=== PATIENT | female | born 1985 ===

== ENCOUNTER 2021-09-05 02:56 | Inpatient (IN) | payer MEDICAID, OTHER ==
[~2021-09-05] VITALS: Ht 162.6 cm; Wt 72.4 kg
[2021-09-05] MEDS ORDERED: DiphenhydrAMINE HCL 50 MG/ML VIAL IM ONE ×2 (03:15→17:00)
[2021-09-05] MEDS ORDERED: LORazepam 2 MG/ML VIAL IM ONE ×2 (03:15→17:00)
[2021-09-05] MEDS ORDERED: SODIUM CHLORIDE 0.9% 250 ML IRRIG SOLUTION BOTTLE IRRIG ONE (03:15)
[2021-09-05] MEDS ORDERED: HALOPERIDOL LACTATE 5 MG/ML VIAL IM ONE ×2 (03:15→17:00)
[2021-09-05 05:14] LABS: COVID AG,FIA SOURCE NASAL SWAB
[2021-09-05 05:26] LABS: BASOPHILS % (AUTO) 0.5 % (0.0-2.0); EOSINOPHILS % (AUTO) 0.9 % (1.0-6.0); HEMATOCRIT 30.7 % (36-46); HEMOGLOBIN 10.1 g/dL (12.0-16.0); LYMPHOCYTES # (AUTO) 1.5 K/uL (1.0-4.8); LYMPHOCYTES % (AUTO) 14.2 % (22.0-44.0); MEAN CORPUSCULAR HEMOGLOBIN 26.3 pg (26.0-34.0); MEAN CORPUSCULAR HGB CONC 32.9 G/dL (31.0-37.0); MEAN CORPUSCULAR VOLUME 80 fL (80-100); MONOCYTES # (AUTO) 0.7 K/uL (0.1-1.0); MONOCYTES % (AUTO) 6.5 % (2.0-9.0); NEUTROPHILS # (AUTO) 8.2 K/uL (1.8-7.7); NEUTROPHILS % (AUTO) 77.9 % (40.0-70.0); PLATELET COUNT (AUTO) 412 K/uL (150-450); RED BLOOD CELL COUNT(AUTO) 3.84 MIL/uL (4.00-5.20); RED CELL DISTRIBUTION WIDTH 17.6 % (11.5-14.5)
[2021-09-05 05:36] LABS: ANION GAP 8 mmol/L (8-16); CARBON DIOXIDE 27 mmol/L (22-29); CHLORIDE 103 mmol/L (98-107); CREATININE 0.63 mg/dL (0.60-1.30); GLOMERULAR FILTR. RATE CALC > 60 mL/min (>60); GLUCOSE,RANDOM 94 mg/dL (70-110); POTASSIUM 3.9 mmol/L (3.5-5.1); SODIUM SERUM 138 mmol/L (136-145); UREA NITROGEN, BLOOD 31 mg/dL (7-18)
[2021-09-05 05:56] LABS: ALANINE AMINOTRANSFERASE 22 U/L (12-78); ALBUMIN 3.7 g/dL (3.4-5.0); ALKALINE PHOSPHATASE 62 U/L (46-116); ASPARTATE AMINOTRANSFERASE 22 U/L (15-37); BILIRUBIN,TOTAL 0.3 mg/dL (0.1-1.0); HCG,QUANTITATIVE 1 mIU/mL (0-6); THYROID STIMULATING HORMONE 2.48 uIU/mL (0.36-3.74); TOTAL PROTEIN, SERUM 7.8 g/dL (6.4-8.2)
[2021-09-05 19:13] LABS: AMPHET/METH SCREEN,URINE POSITIVE (NEGATIVE); BARBITURATE SCREEN, URINE NEGATIVE (NEGATIVE); BENZODIAZEPINES SCREEN,URINE NEGATIVE (NEGATIVE); CANNABINOID SCREEN,URINE NEGATIVE (NEGATIVE); COCAINE SCREEN,URINE NEGATIVE (NEGATIVE); METHADONE SCREEN, URINE NEGATIVE (NEGATIVE); OPIATE SCREEN,URINE NEGATIVE (NEGATIVE)
[2021-09-05 19:15] LABS: PHENCYCLIDINE SCREEN,URINE NEGATIVE (NEGATIVE)
[2021-09-05 21:09] VITALS: BP 137/99
[2021-09-06 08:00] VITALS: BP 126/96
[2021-09-06] MEDS ORDERED: CloNIDine HCL 0.1 MG TABLET PO PRN (15:30)
[2021-09-06] MEDS ORDERED: ACETAMINOPHEN 325 MG TABLET PO PRN (15:30)
[2021-09-06] MEDS ORDERED: ONDANSETRON HCL 4 MG TABLET PO PRN (15:30)
[2021-09-06] MEDS ORDERED: DOCUSATE SODIUM 100 MG CAPSULE PO PRN (15:30)
[2021-09-06] MEDS ORDERED: LOPERAMIDE HCL 2 MG CAPSULE PO PRN (15:30)
[2021-09-06] MEDS ORDERED: GuaiFENesin/D-METHORPHAN [SUGAR-FREE] 200-20MG/10 ML SYRUP UDCUP PO PRN (15:30)
[2021-09-06] MEDS ORDERED: MAGNESIUM HYDROXIDE SUSPENSION 30 ML UDCUP PO PRN (15:30)
[2021-09-06] MEDS ORDERED: PETROLATUM,WHITE 28 GM JELLY TP PRN (15:30)
[2021-09-06] MEDS ORDERED: IBUPROFEN 400 MG TABLET PO PRN (15:30)
[2021-09-06] MEDS ORDERED: MAG HYDROX/AL HYDROX/SIMETH ES 30 ML SUSPENSION UDCUP PO PRN (15:30)
[2021-09-06] MEDS ORDERED: ALBUTEROL SULFATE HFA 90 MCG/PUFF 8 GM INHALER IH PRN (15:30)
[2021-09-06] MEDS: HALOPERIDOL 5 MG TABLET PO PRN (15:56)
[2021-09-06] MEDS: LORazepam 2 MG TABLET PO PRN (15:57)
[2021-09-06 16:11] VITALS: BP 117/77
[2021-09-06] MEDS: OLANZapine 5 MG TABLET PO SCH (20:41)
[2021-09-07 09:20] VITALS: BP 134/79
[2021-09-07] MEDS: OLANZapine 5 MG TABLET PO SCH ×2 (09:58→20:33)
[2021-09-07 16:36] VITALS: BP 131/98
[2021-09-08 08:24] VITALS: BP 151/90
[2021-09-08] MEDS: OLANZapine 5 MG TABLET PO SCH ×2 (08:51→20:33)
[2021-09-08] MEDS: LORazepam 2 MG TABLET PO PRN ×2 (08:51→16:03)
[2021-09-08 16:13] VITALS: BP 150/79
[2021-09-09 08:09] VITALS: BP 133/90
[2021-09-09] MEDS: OLANZapine 5 MG TABLET PO SCH ×2 (08:17→21:14)
[2021-09-09] MEDS: LORazepam 2 MG TABLET PO PRN ×3 (08:18→19:00)
[2021-09-09] MEDS: HALOPERIDOL 5 MG TABLET PO PRN ×2 (13:15→19:00)
[2021-09-09 16:32] VITALS: BP 143/84
[2021-09-09] MEDS: ZOLPIDEM TARTRATE 10 MG TABLET PO PRN (21:15)
[2021-09-10] MEDS: HALOPERIDOL 5 MG TABLET PO PRN (07:30)
[2021-09-10] MEDS: OLANZapine 5 MG TABLET PO SCH ×2 (07:30→20:13)
[2021-09-10] MEDS: LORazepam 2 MG TABLET PO PRN (07:30)
[2021-09-10] MEDS: NICOTINE 14 MG/24 HOUR PATCH TD PRN (07:33)
[2021-09-10 08:38] VITALS: BP 117/61
[2021-09-10 08:41] VITALS: BP 117/61
[2021-09-10 16:03] VITALS: BP 123/77
[2021-09-11] MEDS: HALOPERIDOL 5 MG TABLET PO PRN ×2 (08:33→17:41)
[2021-09-11] MEDS: OLANZapine 5 MG TABLET PO SCH ×2 (08:33→20:12)
[2021-09-11] MEDS: LORazepam 2 MG TABLET PO PRN (08:33)
[2021-09-11 08:45] VITALS: BP 139/89
[2021-09-11 16:21] VITALS: BP 130/72
[2021-09-12] MEDS: OLANZapine 5 MG TABLET PO SCH ×2 (07:48→20:15)
[2021-09-12] MEDS: LORazepam 2 MG TABLET PO PRN (07:48)
[2021-09-12 09:57] VITALS: BP 154/77
[2021-09-12 16:10] VITALS: BP 148/76
[2021-09-13 08:09] VITALS: BP 151/104
[2021-09-13] MEDS: OLANZapine 5 MG TABLET PO SCH ×2 (09:09→20:02)
[2021-09-13] MEDS: LORazepam 2 MG TABLET PO PRN ×2 (09:09→16:14)
[2021-09-13 12:54] LABS: COVID AG,FIA SOURCE NASOPHARYNGEAL
[2021-09-13 18:47] VITALS: BP 132/95
[2021-09-13] MEDS: ZOLPIDEM TARTRATE 10 MG TABLET PO PRN (20:03)
[2021-09-14 08:10] VITALS: BP 151/96
[2021-09-14] MEDS: OLANZapine 5 MG TABLET PO SCH ×2 (09:39→20:13)
[2021-09-14] MEDS: LORazepam 2 MG TABLET PO PRN (16:20)
[2021-09-14] MEDS: ZOLPIDEM TARTRATE 10 MG TABLET PO PRN (20:13)
[2021-09-15 08:45] VITALS: BP 134/92
[2021-09-15] MEDS: OLANZapine 5 MG TABLET PO SCH ×2 (09:49→20:11)
[2021-09-15] MEDS: LORazepam 2 MG TABLET PO PRN (16:00)
[2021-09-15] MEDS: HALOPERIDOL 5 MG TABLET PO PRN (16:00)
[2021-09-15 16:38] VITALS: BP 135/76
[2021-09-15] MEDS: ZOLPIDEM TARTRATE 10 MG TABLET PO PRN (20:11)
[2021-09-16 08:28] VITALS: BP 142/85
[2021-09-16] MEDS: OLANZapine 5 MG TABLET PO SCH ×2 (08:35→20:03)
[2021-09-16 16:12] VITALS: BP 135/84
[2021-09-16] MEDS: ZOLPIDEM TARTRATE 10 MG TABLET PO PRN (21:02)
[2021-09-17 08:00] VITALS: BP 143/86
[2021-09-17] MEDS: OLANZapine 5 MG TABLET PO SCH ×2 (08:08→20:23)
[2021-09-17 16:16] VITALS: BP 158/85
[2021-09-17] MEDS: HALOPERIDOL 5 MG TABLET PO PRN (16:26)
[2021-09-17] MEDS: LORazepam 2 MG TABLET PO PRN (16:27)
[2021-09-18] MEDS: OLANZapine 5 MG TABLET PO SCH ×2 (08:26→20:04)
[2021-09-18 11:25] VITALS: BP 128/85
[2021-09-18] MEDS: LORazepam 2 MG TABLET PO PRN (16:06)
[2021-09-18] MEDS: HALOPERIDOL 5 MG TABLET PO PRN (16:06)
[2021-09-18 16:21] VITALS: BP 126/78
[2021-09-19 08:00] VITALS: BP 148/78
[2021-09-19] MEDS: OLANZapine 5 MG TABLET PO SCH ×2 (08:13→20:06)
[2021-09-19 16:13] VITALS: BP 140/87
[2021-09-19] MEDS: HALOPERIDOL 5 MG TABLET PO PRN (16:24)
[2021-09-19] MEDS: LORazepam 2 MG TABLET PO PRN (16:24)
[2021-09-20 08:00] VITALS: BP 137/79
[2021-09-20] MEDS: OLANZapine 5 MG TABLET PO SCH ×2 (09:10→20:35)
[2021-09-20] MEDS: HALOPERIDOL 5 MG TABLET PO PRN (15:57)
[2021-09-20] MEDS: LORazepam 2 MG TABLET PO PRN (15:57)
[2021-09-20 17:12] VITALS: BP 129/76
[2021-09-21 09:00] VITALS: BP 159/85
[2021-09-21] MEDS: OLANZapine 5 MG TABLET PO SCH ×2 (09:10→20:07)
[2021-09-21] MEDS: LORazepam 2 MG TABLET PO PRN (16:02)
[2021-09-21] MEDS: HALOPERIDOL 5 MG TABLET PO PRN (16:02)
[2021-09-21 17:11] VITALS: BP 155/88
[2021-09-21] MEDS: ZOLPIDEM TARTRATE 10 MG TABLET PO PRN (20:07)
[2021-09-22 08:35] VITALS: BP 130/86
[2021-09-22] MEDS: OLANZapine 5 MG TABLET PO SCH ×2 (09:37→20:19)
[2021-09-22] MEDS: LORazepam 2 MG TABLET PO PRN (16:07)
[2021-09-22 17:06] VITALS: BP 142/87
[2021-09-23] MEDS: OLANZapine 5 MG TABLET PO SCH ×2 (08:01→20:49)
[2021-09-23 08:08] VITALS: BP 130/87
[2021-09-23] MEDS: NICOTINE 14 MG/24 HOUR PATCH TD PRN (13:05)
[2021-09-23 14:53] LABS: COVID AG,FIA SOURCE NASOPHARYNGEAL
[2021-09-23 16:53] VITALS: BP 135/81
[2021-09-24] MEDS: OLANZapine 5 MG TABLET PO SCH ×2 (08:14→20:06)
[2021-09-24 09:34] VITALS: BP 165/96
[2021-09-24] MEDS: HALOPERIDOL 5 MG TABLET PO PRN (16:21)
[2021-09-24] MEDS: LORazepam 2 MG TABLET PO PRN (16:21)
[2021-09-24 16:29] VITALS: BP 150/83
[2021-09-25 09:19] VITALS: BP 148/88
[2021-09-25] MEDS: OLANZapine 5 MG TABLET PO SCH ×2 (09:56→20:10)
[2021-09-25] MEDS: LORazepam 2 MG TABLET PO PRN (16:05)
[2021-09-25] MEDS: HALOPERIDOL 5 MG TABLET PO PRN (16:05)
[2021-09-25 16:33] VITALS: BP 145/93
[2021-09-26] MEDS: ZOLPIDEM TARTRATE 10 MG TABLET PO PRN (01:40)
[2021-09-26] MEDS: OLANZapine 5 MG TABLET PO SCH (08:17)
[2021-09-26] MEDS: LORazepam 2 MG TABLET PO PRN (08:17)
[2021-09-26] MEDS: HALOPERIDOL 5 MG TABLET PO PRN (08:18)
[2021-09-26 08:36] VITALS: BP 125/85
[2021-09-26] MEDS ORDERED: OLAN5TAB52 PO (13:01)
== END 2021-09-26 13:20 | disposition home or self-care (01) | DRG 750 ==
LOC: EMS 02:58 → 3EC 19:00
PROVIDERS: ADMIT Psychiatry & Neurology Child & Adolescent Psychiatry; ATTEND Psychiatry & Neurology Child & Adolescent Psychiatry
DX: F20.0 Paranoid schizophrenia (principal); I95.9 Hypotension, unspecified; D64.9 Anemia, unspecified; F15.10 Other stimulant abuse, uncomplicated; Z20.822 Contact with and (suspected) exposure to COVID-19; Z59.00 Homelessness unspecified; Z78.1 Physical restraint status
CPT/HCPCS: 80053; 84443; 84702; 85025; 99291; G0480; J1200; J1630; J2060

== ENCOUNTER 2023-12-09 09:55 | Emergency (ER) | payer MEDICAID, OTHER ==
[~2023-12-09] VITALS: Ht 165.1 cm; Wt 75.9 kg
[~2023-12-09 09:55] MED LIST: OLAN5TAB52 PO
[2023-12-09 10:17] VITALS: BP 163/103; PULSE 118; RESP 18; TEMP 98.1
== END 2023-12-09 10:42 ==
LOC: EMS 09:55
DX: Z02.89 Encounter for other administrative examinations (principal)
CPT/HCPCS: 99283; Z7502